=== PATIENT | male | born 1995 | race Caucasian/White ===

== ENCOUNTER 2017-07-28 11:58 | Emergency (ER) | payer MEDICAID ==
[~2017-07-28] VITALS: Ht 175.3 cm; Wt 102.0 kg
[~2017-07-28 11:58] MED LIST: LEVE100S; LORA2TAB2; PHEN-434
[2017-07-28] MEDS ORDERED: SODIUM CHLORIDE 0.9% 1,000 ML IV ONE (13:08)
[2017-07-28] MEDS ORDERED: LEVETIRACETAM 500MG PREMIX 100 ML IV ONE (13:15)
[2017-07-28] MEDS ORDERED: LORAZEPAM 1MG TABLET PO ONE (13:15)
[2017-07-28 13:27] VITALS: BP 105/68
[2017-07-28 14:22] LABS: BASOPHILS % 0.9 % (0.0-2.0); EOSINOPHILS % 1.5 % (0.0-5.0); HEMATOCRIT. 40.4 % (42.0-52.0); LYMPHOCYTES % 30.3 % (20.0-50.0); MEAN CORPUSCULAR HEMOGLOBIN 26.8 pg (28.0-32.0); MEAN CORPUSCULAR VOLUME 82.9 fL (80.0-94.0); MEAN PLATELET VOLUME 8.8 fl (7.4-10.4); MONOCYTES % 8.8 % (2.0-8.0); NEUTROPHILS % 58.5 % (40.0-76.0); PLATELET 206 x1000/uL (130-400); RED BLOOD CELL COUNT 4.88 mill/uL (4.7-6.1); RED CELL DISTRIBUTION WIDTH 13.6 % (11.6-14.6)
[2017-07-28 14:32] LABS: CARBON DIOXIDE 31 mEq/L (21-32); CHLORIDE 103 mEq/L (98-107); CREATINE KINASE 139 IU/L (39-308); ETHANOL BLOOD < 10 mg/dL
[2017-07-28 14:35] LABS: CARBAMAZEPINE < 0.5 ug/mL (4-12); PHENOBARBITAL < 2.1 ug/mL (15.0-40.0); VALPROIC ACID < 3.0 ug/mL (50-100)
[2017-07-28 15:31] LABS: CLARITY URINE CLEAR (CLEAR); COLOR URINE YELLOW (YELLOW); KETONES URINE NEGATIVE (NEGATIVE); LEUKOCYTE ESTERASE URINE NEGATIVE (NEGATIVE); NITRITE URINE NEGATIVE (NEGATIVE); OCCULT BLOOD URINE NEGATIVE (NEGATIVE); PROTEIN URINE NEGATIVE (NEGATIVE); SPECIFIC GRAVITY URINE 1.009 (1.005-1.030); UROBILINOGEN URINE 0.2 E.U./dL (0.2-1.0)
[2017-07-28 15:46] LABS: *AMPHETAMINES SCREEN URINE NEGATIVE (NEGATIVE); *BARBITURATES SCREEN URINE NEGATIVE (NEGATIVE); *BENZODIAZEPINES SCREEN URINE NEGATIVE (NEGATIVE); *COCAINE SCREEN URINE NEGATIVE (NEGATIVE); CANNABINOID URINE SCREEN PRESUMTIVE POSITIVE (NEGATIVE); METHADONE URINE SCREEN NEGATIVE (NEGATIVE); OPIATES URINE SCREEN NEGATIVE (NEGATIVE); PHENCYCLIDINE URINE SCREEN NEGATIVE (NEGATIVE)
== END 2017-07-28 17:10 | disposition home or self-care (01) ==
LOC: ER 12:42
DX: R56.9 Unspecified convulsions (principal); J45.909 Unspecified asthma, uncomplicated; F41.9 Anxiety disorder, unspecified; F32.9 Major depressive disorder, single episode, unspecified; F12.10 Cannabis abuse, uncomplicated
CPT/HCPCS: 36415; 80053; 80156; 80165; 80184; 80185; 80305; 81003; 82550; 85025; 93005; 96365; 99285; G0482; J1953; J7030

== ENCOUNTER 2019-02-25 06:26 | Emergency (ER) | payer MEDICAID ==
[~2019-02-25] VITALS: Ht 172.7 cm; Wt 95.0 kg
[2019-02-25] MEDS ORDERED: SODIUM CHLORIDE 0.9% 1,000 ML IV ONE (06:56)
[2019-02-25] MEDS ORDERED: ONDANSETRON HCL 4MG/2ML INJ IV STA (06:56)
[2019-02-25] MEDS ORDERED: LEVETIRACETAM 1000MG/100ML 100 ML IV ONE (07:00)
[2019-02-25] MEDS ORDERED: LORAZEPAM 2MG/ML CPJ IV ONE (07:15)
[2019-02-25 08:02] LABS: BASOPHILS % 0.5 % (0.0-2.0); EOSINOPHILS % 0.1 % (0.0-5.0); HEMATOCRIT. 47.3 % (42.0-52.0); LYMPHOCYTES % 12.5 % (20.0-50.0); MEAN CORPUSCULAR HEMOGLOBIN 28.1 pg (28.0-32.0); MEAN CORPUSCULAR VOLUME 83.1 fL (80.0-94.0); MEAN PLATELET VOLUME 9.1 fl (7.4-10.4); MONOCYTES % 5.1 % (2.0-8.0); NEUTROPHILS % 81.8 % (40.0-76.0); PLATELET 247 x1000/uL (130-400); RED BLOOD CELL COUNT 5.69 mill/uL (4.7-6.1); RED CELL DISTRIBUTION WIDTH 13.7 % (11.6-14.6)
[2019-02-25 08:10] LABS: CHLORIDE 107 mEq/L (98-107)
[2019-02-25 08:13] LABS: ETHANOL BLOOD < 10 mg/dL
[2019-02-25 08:20] LABS: PHENOBARBITAL < 2.1 ug/mL (15.0-40.0); VALPROIC ACID < 3.0 ug/mL (50-100)
[2019-02-25 08:30] LABS: CARBAMAZEPINE < 0.5 ug/mL (4-12)
[2019-02-25 09:07] LABS: CLARITY URINE CLEAR (CLEAR); COLOR URINE YELLOW (YELLOW); KETONES URINE NEGATIVE (NEGATIVE); LEUKOCYTE ESTERASE URINE NEGATIVE (NEGATIVE); NITRITE URINE NEGATIVE (NEGATIVE); OCCULT BLOOD URINE NEGATIVE (NEGATIVE); PH URINE 6.5 (4.5-8.0); PROTEIN URINE 1+ (NEGATIVE); UROBILINOGEN URINE 0.2 E.U./dL (0.2-1.0)
[2019-02-25 09:30] LABS: *AMPHETAMINES SCREEN URINE NEGATIVE (NEGATIVE); *BARBITURATES SCREEN URINE NEGATIVE (NEGATIVE); *BENZODIAZEPINES SCREEN URINE NEGATIVE (NEGATIVE); *COCAINE SCREEN URINE NEGATIVE (NEGATIVE); CANNABINOID URINE SCREEN PRESUMTIVE POSITIVE (NEGATIVE); METHADONE URINE SCREEN NEGATIVE (NEGATIVE); OPIATES URINE SCREEN NEGATIVE (NEGATIVE); PHENCYCLIDINE URINE SCREEN NEGATIVE (NEGATIVE)
[2019-02-25 10:05] VITALS: BP 115/77
== END 2019-02-25 10:26 | disposition home or self-care (01) ==
LOC: ER 06:26
DX: R10.31 Right lower quadrant pain (principal); R11.10 Vomiting, unspecified; Z79.899 Other long term (current) drug therapy
CPT/HCPCS: 36415; 74176; 80053; 80156; 80165; 80184; 80185; 80305; 80320; 81003; 85025; 96365; 96375; 99284; J1953; J2060; J2405; J7030; G0480